=== PATIENT | female | born 1990 | race Caucasian/White ===

== ENCOUNTER 2021-01-02 09:48 | Outpatient (CLI) | payer BC ==
[~2021-01-02] VITALS: Ht 152.4 cm; Wt 85.4 kg
[2021-01-02 10:21] LABS: MICROSCOPIC INDICATED
[2021-01-02 10:36] LABS: BASOPHILS % (AUTO) 1 % (0-1); EOSINOPHILS % (AUTO) 2 % (1-7); LYMPHOCYTES % (AUTO) 21 % (22-44); MEAN CORPUSCULAR HEMOGLOBIN 29.3 pg (27.0-34.8); MEAN CORPUSCULAR HGB CONC 33.4 g/dL (32.4-35.8); MEAN PLATELET VOLUME 9.5 fL (7.4-10.4); MONOCYTES % (AUTO) 9 % (2-9); NEUTROPHILS % (AUTO) 68 % (42-75); PLATELET COUNT 293 x10^3/uL (130-400); RED BLOOD COUNT 3.87 x10^6/uL (3.82-5.3); RED CELL DISTRIBUTION WIDTH 14.3 % (9.6-15.2)
[2021-01-02 10:39] LABS: MD NO
[2021-01-02 10:44] LABS: ALANINE AMINOTRANSFERASE 14 U/L (12-78); ALBUMIN 2.6 g/dL (3.4-5.0); ANION GAP 4 mmol/L (5-15); CALCIUM 8.7 mg/dL (8.5-10.1); CHLORIDE 107 mmol/L (98-107); CREATININE 0.58 mg/dL (0.55-1.02)
[2021-01-02 10:46] LABS: ALKALINE PHOSPHATASE 145 U/L (45-117); BILIRUBIN,TOTAL 0.2 mg/dL (0.2-1.0); TOTAL PROTEIN 6.6 g/dL (6.4-8.2)
[2021-01-05] MEDS ORDERED: OXYC1TAB14 PO (06:57)
== END 2021-01-02 11:05 | disposition home or self-care (01) ==
LOC: LDOP 09:48
PROVIDERS: ATTEND Obstetrics & Gynecology
DX: O16.3 Unspecified maternal hypertension, third trimester (principal); Z3A.39 39 weeks gestation of pregnancy
CPT/HCPCS: 36415; 59025; 80053; 81001; 82570; 84156; 84550; 85025

== ENCOUNTER 2021-01-04 07:37 | Inpatient (IN) | payer BC ==
[~2021-01-04] VITALS: Ht 152.4 cm; Wt 86.0 kg
[2021-01-04] MEDS ORDERED: TERBUTALINE 1 MG/ML, 1ML SQ PRN (08:00)
[2021-01-04] MEDS ORDERED: ALUMINUM/MAG/SIMETHICONE 30 ML UDC PO PRN (08:00)
[2021-01-04] MEDS ORDERED: ONDANSETRON 2MG/ML, 2ML IVPush PRN (08:00)
[2021-01-04] MEDS ORDERED: METOCLOPRAMIDE 5 MG/ML, 2ML IVPush PRN (08:00)
[2021-01-04] MEDS ORDERED: TERBUTALINE 1 MG/ML, 1ML IVPush PRN (08:00)
[2021-01-04] MEDS ORDERED: D5%-LACTATED RINGERS 1,000 ML IV SCH (08:00)
[2021-01-04] MEDS ORDERED: SODIUM CITRATE/CITRIC ACID 30 ML UDC PO PRN (08:00)
[2021-01-04] MEDS ORDERED: OXYTOCIN 30U/ 0.9% NaCL 500ML 500 ML IV ONE (08:00)
[2021-01-04] MEDS ORDERED: CALCIUM CARBONATE 500 MG TAB.CHEW PO PRN ×2 (08:00→16:00)
[2021-01-04] MEDS ORDERED: OXYTOCIN 30U/ 0.9% NaCL 500ML 500 ML IV PRN ×2 (08:00)
[2021-01-04] MEDS ORDERED: FENTANYL PF 100 MCG/2ML IVPush PRN (08:00)
[2021-01-04 08:21] LABS: BASOPHILS % (AUTO) 1 % (0-1); EOSINOPHILS % (AUTO) 2 % (1-7); LYMPHOCYTES % (AUTO) 23 % (22-44); MEAN CORPUSCULAR HEMOGLOBIN 29.4 pg (27.0-34.8); MEAN CORPUSCULAR HGB CONC 33.5 g/dL (32.4-35.8); MEAN PLATELET VOLUME 9.4 fL (7.4-10.4); MONOCYTES % (AUTO) 9 % (2-9); NEUTROPHILS % (AUTO) 66 % (42-75); PLATELET COUNT 299 x10^3/uL (130-400); RED BLOOD COUNT 3.91 x10^6/uL (3.82-5.3); RED CELL DISTRIBUTION WIDTH 14.2 % (9.6-15.2)
[2021-01-04] MEDS ORDERED: PLEASE ENTER HEIGHT AND WEIGHT MC SCH (08:30)
[2021-01-04] MEDS: LACTATED RINGERS 1,000 ML IV SCH ×4 (08:30→21:30)
[2021-01-04] MEDS ORDERED: OXYTOCIN 30U/ 0.9% NaCL 500ML 500 ML ONE (08:35)
[2021-01-04] MEDS ORDERED: LIDOCAINE 1%, 20ML ONE (08:35)
[2021-01-04] MEDS ORDERED: MISOPROSTOL 200 MCG TABLET ONE (08:35)
[2021-01-04] MEDS ORDERED: NEWBORN KIT ONE (08:35)
[2021-01-04] MEDS ORDERED: FENTANYL/BUPIV./NS/PF 250 ML EPIDCONT ONE (12:20)
[2021-01-04] MEDS ORDERED: BUPIVACAINE 0.25% ONE (12:20)
[2021-01-04] MEDS ORDERED: EPHEDRINE 50 MG/ML, 1ML IVPush PRN (13:30)
[2021-01-04] MEDS ORDERED: LACTATED RINGERS 1,000 ML IVBOLUS PRN (13:30)
[2021-01-04] MEDS: FENTANYL/BUPIV./NS/PF 250 ML EPIDCONT SCH (13:30)
[2021-01-04 14:43] LABS: AMPHETAMINE SCREEN, URINE Negative (Negative); BARBITURATE SCREEN, URINE Negative (Negative); BENZODIAZEPINE SCREEN, URINE Negative (Negative); CANNABINOID SCREEN, URINE Positive (Negative); COCAINE SCREEN, URINE Negative (Negative); METHADONE SCREEN, URINE Negative (Negative); OPIATE SCREEN, URINE Negative (Negative)
[2021-01-04] MEDS ORDERED: BISACODYL 10 MG SUPP PR PRN (16:00)
[2021-01-04] MEDS ORDERED: GLYCERIN ADULT SUPP PR PRN (16:00)
[2021-01-04] MEDS ORDERED: METHYLERGONOVINE 0.2 MG/ML IM PRN (16:00)
[2021-01-04] MEDS ORDERED: ONDANSETRON 2MG/ML, 2ML IV PRN (16:00)
[2021-01-04] MEDS ORDERED: ACETAMINOPHEN 325 MG TABLET PO PRN ×2 (16:00)
[2021-01-04] MEDS ORDERED: OXYcodone/APAP 5/325MG TABLET PO PRN (16:00)
[2021-01-04] MEDS ORDERED: RHOGAM FROM BLOOD BANK 1 NOTE EA IM/IV ONE (16:00)
[2021-01-04] MEDS ORDERED: SIMETHICONE 80 MG CHEW TAB PO PRN (16:00)
[2021-01-04] MEDS ORDERED: MISOPROSTOL 200 MCG TABLET PR PRN (16:00)
[2021-01-04] MEDS ORDERED: DIPH,PERTUSS(ACELL),TET VAC/PF NC IM-VACC PRN (16:00)
[2021-01-04] MEDS ORDERED: MAGNESIUM HYDROXIDE 8%, 30ML UDC PO PRN (16:00)
[2021-01-04] MEDS ORDERED: METOCLOPRAMIDE 5 MG/ML, 2ML IV PRN (16:00)
[2021-01-04] MEDS ORDERED: CARBOPROST TROMETHAMINE 250 MCG/ML, 1ML IM PRN (16:00)
[2021-01-04] MEDS ORDERED: MEASLES,MUMPS&RUBELLA VACC/PF 0.5 ML SQ-VACC PRN (16:00)
[2021-01-04] MEDS: OXYTOCIN 30U/ 0.9% NaCL 500ML 500 ML IV SCH (17:30)
[2021-01-04] MEDS: IBUPROFEN 600 MG TABLET PO PRN (17:30)
[2021-01-04 20:15] VITALS: BP 110/74
[2021-01-04] MEDS: OXYcodone/APAP 5/325MG TABLET PO PRN (22:32)
[2021-01-05 00:40] VITALS: BP 111/82
[2021-01-05] MEDS: OXYTOCIN 30U/ 0.9% NaCL 500ML 500 ML IV SCH ×3 (02:00→22:00)
[2021-01-05 04:45] VITALS: BP 114/75
[2021-01-05] MEDS: IBUPROFEN 600 MG TABLET PO PRN ×3 (05:11→19:21)
[2021-01-05] MEDS: OXYcodone/APAP 5/325MG TABLET PO PRN ×3 (05:12→20:28)
[2021-01-05] MEDS: LACTATED RINGERS 1,000 ML IV SCH ×2 (05:30→13:30)
[2021-01-05 06:20] LABS: BASOPHILS % (AUTO) 0 % (0-1); EOSINOPHILS % (AUTO) 2 % (1-7); LYMPHOCYTES % (AUTO) 20 % (22-44); MEAN CORPUSCULAR HEMOGLOBIN 29.2 pg (27.0-34.8); MEAN CORPUSCULAR HGB CONC 33.1 g/dL (32.4-35.8); MEAN PLATELET VOLUME 9.6 fL (7.4-10.4); MONOCYTES % (AUTO) 6 % (2-9); NEUTROPHILS % (AUTO) 72 % (42-75); PLATELET COUNT 275 x10^3/uL (130-400); RED BLOOD COUNT 3.76 x10^6/uL (3.82-5.3); RED CELL DISTRIBUTION WIDTH 14.2 % (9.6-15.2)
[2021-01-05] MEDS ORDERED: IBUP-1222 PO (06:57)
[2021-01-05] MEDS ORDERED: OXYC1TAB12 PO (06:57)
[2021-01-05 07:00] VITALS: BP 112/73
[2021-01-05] MEDS: PRENATAL VIT/IRON/FA 1 EACH TABLET PO SCH (09:00)
[2021-01-05 12:05] VITALS: BP 109/73
[2021-01-05] MEDS: FENTANYL/BUPIV./NS/PF 250 ML EPIDCONT SCH (13:30)
[2021-01-05] MEDS: DOCUSATE 100 MG CAPSULE PO PRN (19:21)
[2021-01-05 19:42] VITALS: BP 127/82
[2021-01-06] MEDS: IBUPROFEN 600 MG TABLET PO PRN (05:10)
[2021-01-06 07:15] VITALS: BP 124/82
[2021-01-06] MEDS: DOCUSATE 100 MG CAPSULE PO PRN (07:19)
[2021-01-06] MEDS: OXYcodone/APAP 5/325MG TABLET PO PRN (07:19)
[2021-01-06] MEDS: OXYTOCIN 30U/ 0.9% NaCL 500ML 500 ML IV SCH (07:48)
[2021-01-06] MEDS: PRENATAL VIT/IRON/FA 1 EACH TABLET PO SCH (07:49)
== END 2021-01-06 11:35 | disposition home or self-care (01) | DRG 807 ==
LOC: LDIP 07:50 → 2NW 19:54
PROVIDERS: ADMIT Obstetrics & Gynecology; ATTEND Obstetrics & Gynecology
PROC: 10E0XZZ Delivery of Products of Conception, External Approach (ICD-10-PCS; principal; 2021-01-04)
DX: O66.0 Obstructed labor due to shoulder dystocia (principal); Z37.0 Single live birth; Z20.822 Contact with and (suspected) exposure to COVID-19; Z3A.39 39 weeks gestation of pregnancy
CPT/HCPCS: 36415; 80307; 85025; 86592; 86850; 86900; 87635; G0378; J2590; J3010; J7120